=== PATIENT | male | born 1975 | race Caucasian/White ===

== ENCOUNTER 2021-02-09 09:22 | Emergency (ER) | payer OTHER ==
[2021-02-09] MEDS ORDERED: NAPROXEN500 MG PO (10:20)
== END 2021-02-09 10:29 | disposition home or self-care (01) ==
LOC: FER 09:22
DX: G89.29 Other chronic pain (principal); M25.561 Pain in right knee; M23.303 Other meniscus derangements, unspecified medial meniscus, right knee
CPT/HCPCS: 73564